=== PATIENT | male | born 1940 | race Caucasian/White ===

== ENCOUNTER 2021-01-13 16:47 | Inpatient (IN) ==
[2021-01-13 18:10] LABS: Urine Appearance Clear; Urine Bilirubin Negative (Negative); Urine Blood Negative (Negative); Urine Color Yellow; Urine Glucose Negative (Negative); Urine Ketones Negative (Negative); Urine Nitrite Negative (Negative); Urine Protein Negative (Negative); Urine Specific Gravity 1.024 (1.010-1.030); Urine Urobilinogen Negative (Negative)
[2021-01-13 18:17] LABS: ABS Eosinophils 0.1 10^3/ul (0-0.6); ABS Monocytes 0.7 10^3/ul (0-0.8); ABS Neutrophils 7.9 10^3/ul (1.5-7.7); Eosinophil % 0.5 %; Hematocrit 37 % (42-52); Hemoglobin 12.6 g/dL (14.0-18.0); Lymphocyte % 18.7 %; Mean Corpuscular HGB Conc 34 g/dL (31-36); Mean Corpuscular Hemoglobin 33 pg (27-31); Mean Corpuscular Volume 97 fL (80-94); Mean Platelet Volume 7.6 fL (7.4-10.4); Platelet Count 348 10^3/uL (150-450); Red Blood Count 3.82 10^6 /uL (4.18-5.48); Red Cell Distribution Width 13 % (10-15); White Blood Count 10.7 10^3/uL (3.5-10.8)
[2021-01-13 18:41] LABS: Albumin 3.5 g/dL (3.2-5.2); Albumin/Globulin Ratio 1.1 (1-3); BUN/Creatinine Ratio 18.5 (8-20); Calcium 9.5 mg/dL (8.6-10.3); EGFR Non-African American 58.7 (>60); Globulin 3.1 g/dL (2-4); Potassium 4.3 mmol/L (3.5-5.0); Total Bilirubin 0.7 mg/dL (0.2-1.0); Total Protein 6.6 g/dL (6.4-8.9)
[2021-01-13 18:42] LABS: Troponin I 0.01 ng/mL (<0.03)
[2021-01-13] MEDS ORDERED: Iodixanol (CONTRAST) 320 MG/ML 100 ML SDV IV ONE (18:44)
[2021-01-13] MEDS ORDERED: Ondansetron 4 mg VIAL 2 MG/ML 2 ml VIAL IV PRN (20:55)
[2021-01-13 22:28] LABS: TSH Ultra Thyroid Stim Horm 0.82 mcIU/mL (0.34-5.60)
[2021-01-14] MEDS: Enoxaparin 40 MG/0.4 ML SYR SUBCUT SCH ×2 (01:24→21:17)
[2021-01-14 07:46] LABS: ABS Basophils 0.1 10^3/ul (0-0.2); ABS Lymphocytes 0.9 10^3/ul (1.0-4.8); ABS Monocytes 0.6 10^3/ul (0-0.8); ABS Neutrophils 8.8 10^3/ul (1.5-7.7); Eosinophil % 0.4 %; Hematocrit 37 % (42-52); Hemoglobin 12.4 g/dL (14.0-18.0); Lymphocyte % 8.3 %; Mean Corpuscular HGB Conc 34 g/dL (31-36); Mean Corpuscular Hemoglobin 33 pg (27-31); Mean Corpuscular Volume 98 fL (80-94); Mean Platelet Volume 7.5 fL (7.4-10.4); Platelet Count 320 10^3/uL (150-450); Red Blood Count 3.75 10^6 /uL (4.18-5.48); Red Cell Distribution Width 13 % (10-15); White Blood Count 10.3 10^3/uL (3.5-10.8)
[2021-01-14 07:56] LABS: BUN/Creatinine Ratio 15.1 (8-20); Calcium 9.3 mg/dL (8.6-10.3); EGFR Non-African American 58.7 (>60); HDL Cholesterol 27.8 mg/dL; Magnesium 2.1 mg/dL (1.9-2.7); Potassium 4.3 mmol/L (3.5-5.0)
[2021-01-14] MEDS ORDERED: Aspirin EC 81 mg TAB.EC (enteric coated) PO SCH (09:00)
[2021-01-14] MEDS ORDERED: Perflutren Lipid Microsphere 3 ML VIAL ONE (10:19)
[2021-01-14] MEDS: Aspirin EC 325 mg TAB.EC PO SCH (18:17)
[2021-01-14] MEDS ORDERED: Nicotine GUM 4MG FRUIT FLAVOR PO PRN (19:42)
[2021-01-15] MEDS: Cholecalciferol (VIT D3) 1,000 unit TAB PO SCH (10:34)
[2021-01-15] MEDS: Nicotine PATCH 21 MG/24 HR PATCH TRANSDERM SCH (10:35)
[2021-01-15] MEDS: Aspirin EC 325 mg TAB.EC PO SCH (22:30)
[2021-01-15] MEDS: Enoxaparin 40 MG/0.4 ML SYR SUBCUT SCH (22:32)
[2021-01-16] MEDS: Nicotine PATCH 21 MG/24 HR PATCH TRANSDERM SCH (09:48)
[2021-01-16] MEDS: Cholecalciferol (VIT D3) 1,000 unit TAB PO SCH (09:50)
[2021-01-16] MEDS: Aspirin EC 325 mg TAB.EC PO SCH (21:24)
[2021-01-16] MEDS: Enoxaparin 40 MG/0.4 ML SYR SUBCUT SCH (21:25)
[2021-01-17] MEDS: Cholecalciferol (VIT D3) 1,000 unit TAB PO SCH (08:15)
[2021-01-17] MEDS: Nicotine PATCH 21 MG/24 HR PATCH TRANSDERM SCH (08:15)
[2021-01-17] MEDS ORDERED: Dextran 70/Hypromellose Tears Eye Drops 15 ml BTL (for Artificials Tears) BOTH EYES PRN (10:37)
[2021-01-17] MEDS: Aspirin EC 325 mg TAB.EC PO SCH (21:49)
[2021-01-17] MEDS: Enoxaparin 40 MG/0.4 ML SYR SUBCUT SCH (21:49)
[2021-01-18 09:01] VITALS: BP 108/86
[2021-01-18] MEDS: Nicotine PATCH 21 MG/24 HR PATCH TRANSDERM SCH (09:12)
[2021-01-18] MEDS: Cholecalciferol (VIT D3) 1,000 unit TAB PO SCH (09:12)
== END 2021-01-18 10:30 | DRG 65 ==
LOC: MEDTELE 16:47 → ED 16:47 → MEDTELE 01-14 00:46
PROVIDERS: ADMIT Internal Medicine; ATTEND Pediatrics

== ENCOUNTER 2021-01-18 10:49 | Inpatient (IN) ==
[2021-01-18] MEDS ORDERED: Senna TAB 8.6 mg TAB PO PRN (12:17)
[2021-01-18] MEDS: Enoxaparin 40 MG/0.4 ML SYR SUBCUT SCH (20:15)
[2021-01-19] MEDS: Aspirin EC 325 mg TAB.EC PO SCH (11:02)
[2021-01-19] MEDS: Cholecalciferol (VIT D3) 1,000 unit TAB PO SCH (11:02)
[2021-01-19] MEDS: Enoxaparin 40 MG/0.4 ML SYR SUBCUT SCH (21:45)
[2021-01-20 07:36] LABS: ABS Basophils 0.1 10^3/ul (0-0.2); ABS Eosinophils 0.2 10^3/ul (0-0.6); ABS Lymphocytes 2.6 10^3/ul (1.0-4.8); ABS Monocytes 0.8 10^3/ul (0-0.8); Eosinophil % 1.8 %; Hematocrit 43 % (42-52); Lymphocyte % 30.6 %; Mean Corpuscular HGB Conc 33 g/dL (31-36); Mean Corpuscular Hemoglobin 32 pg (27-31); Mean Corpuscular Volume 99 fL (80-94); Mean Platelet Volume 7.7 fL (7.4-10.4); Nucleated Red Blood Cells % 0.1; Platelet Count 285 10^3/uL (150-450); Red Blood Count 4.32 10^6 /uL (4.18-5.48); Red Cell Distribution Width 13 % (10-15); White Blood Count 8.6 10^3/uL (3.5-10.8)
[2021-01-20 07:49] LABS: Albumin 3.6 g/dL (3.2-5.2); Albumin/Globulin Ratio 1.1 (1-3); BUN/Creatinine Ratio 25.4 (8-20); Calcium 9.2 mg/dL (8.6-10.3); EGFR African American 74.6 (>60); EGFR Non-African American 61.7 (>60); Globulin 3.2 g/dL (2-4); Potassium 3.8 mmol/L (3.5-5.0); Total Bilirubin 0.7 mg/dL (0.2-1.0); Total Protein 6.8 g/dL (6.4-8.9)
[2021-01-20] MEDS: Aspirin EC 325 mg TAB.EC PO SCH (09:12)
[2021-01-20] MEDS: Cholecalciferol (VIT D3) 1,000 unit TAB PO SCH (09:12)
[2021-01-20] MEDS: Nicotine PATCH 14 MG/24 HR PATCH TRANSDERM SCH (09:12)
[2021-01-20] MEDS: Enoxaparin 40 MG/0.4 ML SYR SUBCUT SCH (20:43)
[2021-01-21] MEDS: Nicotine PATCH 14 MG/24 HR PATCH TRANSDERM SCH (10:23)
[2021-01-21] MEDS: Cholecalciferol (VIT D3) 1,000 unit TAB PO SCH (10:23)
[2021-01-21] MEDS: Aspirin EC 325 mg TAB.EC PO SCH (10:23)
[2021-01-21] MEDS: Enoxaparin 40 MG/0.4 ML SYR SUBCUT SCH (20:30)
[2021-01-22] MEDS: Aspirin EC 325 mg TAB.EC PO SCH (09:03)
[2021-01-22] MEDS: Cholecalciferol (VIT D3) 1,000 unit TAB PO SCH (09:03)
[2021-01-22] MEDS: Nicotine PATCH 14 MG/24 HR PATCH TRANSDERM SCH (09:04)
[2021-01-22] MEDS: Enoxaparin 40 MG/0.4 ML SYR SUBCUT SCH (20:25)
[2021-01-23] MEDS: Aspirin EC 325 mg TAB.EC PO SCH (09:20)
[2021-01-23] MEDS: Cholecalciferol (VIT D3) 1,000 unit TAB PO SCH (09:21)
[2021-01-23] MEDS: Nicotine PATCH 14 MG/24 HR PATCH TRANSDERM SCH (11:59)
[2021-01-23] MEDS: Enoxaparin 40 MG/0.4 ML SYR SUBCUT SCH (20:48)
[2021-01-24] MEDS: Cholecalciferol (VIT D3) 1,000 unit TAB PO SCH (09:19)
[2021-01-24] MEDS: Aspirin EC 325 mg TAB.EC PO SCH (09:19)
[2021-01-24] MEDS: Nicotine PATCH 14 MG/24 HR PATCH TRANSDERM SCH (09:19)
[2021-01-24] MEDS: Enoxaparin 40 MG/0.4 ML SYR SUBCUT SCH (20:13)
[2021-01-25] MEDS: Cholecalciferol (VIT D3) 1,000 unit TAB PO SCH (09:00)
[2021-01-25] MEDS: Aspirin EC 325 mg TAB.EC PO SCH (09:01)
[2021-01-25] MEDS: Nicotine PATCH 14 MG/24 HR PATCH TRANSDERM SCH (09:02)
[2021-01-25] MEDS: Enoxaparin 40 MG/0.4 ML SYR SUBCUT SCH (21:28)
[2021-01-26] MEDS: Cholecalciferol (VIT D3) 1,000 unit TAB PO SCH (08:47)
[2021-01-26] MEDS: Aspirin EC 325 mg TAB.EC PO SCH (08:47)
[2021-01-26] MEDS: Nicotine PATCH 14 MG/24 HR PATCH TRANSDERM SCH (09:14)
[2021-01-26] MEDS: Enoxaparin 40 MG/0.4 ML SYR SUBCUT SCH (20:43)
[2021-01-27 06:46] VITALS: BP 128/66
[2021-01-27 07:43] LABS: ABS Basophils 0.1 10^3/ul (0-0.2); ABS Eosinophils 0.2 10^3/ul (0-0.6); ABS Lymphocytes 2.3 10^3/ul (1.0-4.8); ABS Monocytes 0.7 10^3/ul (0-0.8); ABS Neutrophils 4.7 10^3/ul (1.5-7.7); Hematocrit 39 % (42-52); Hemoglobin 13.1 g/dL (14.0-18.0); Lymphocyte % 28.6 %; Mean Corpuscular HGB Conc 34 g/dL (31-36); Mean Corpuscular Hemoglobin 33 pg (27-31); Mean Corpuscular Volume 97 fL (80-94); Mean Platelet Volume 7.8 fL (7.4-10.4); Platelet Count 237 10^3/uL (150-450); Red Cell Distribution Width 14 % (10-15)
[2021-01-27] MEDS: Cholecalciferol (VIT D3) 1,000 unit TAB PO SCH (08:36)
[2021-01-27] MEDS: Aspirin EC 325 mg TAB.EC PO SCH (08:36)
[2021-01-27] MEDS: Nicotine PATCH 14 MG/24 HR PATCH TRANSDERM SCH (08:38)
[2021-01-27 08:44] LABS: Albumin 3.6 g/dL (3.2-5.2); Calcium 9.6 mg/dL (8.6-10.3); Potassium 4.7 mmol/L (3.5-5.0); Total Bilirubin 0.6 mg/dL (0.2-1.0)
[2021-01-27 08:50] LABS: Albumin/Globulin Ratio 1.2 (1-3); BUN/Creatinine Ratio 21.8 (8-20); EGFR African American 67.7 (>60); Globulin 2.9 g/dL (2-4); Total Protein 6.5 g/dL (6.4-8.9)
== END 2021-01-27 13:18 | disposition home or self-care (01) | DRG 57 ==
LOC: PMRU 10:49
PROVIDERS: ADMIT Physical Medicine & Rehabilitation; ATTEND Physical Medicine & Rehabilitation